=== PATIENT | male | born 1960 | race African-American/Black ===

== ENCOUNTER 2025-01-29 05:15 | Inpatient (IN) | payer MEDICARE, MEDICAID ==
[~2025-01-29] VITALS: Ht 175.3 cm; Wt 106.2 kg
[2025-01-29] VITALS (7 sets, daily range): BP systolic 104–138; BP diastolic 58–88; PULSE 60–81; RESP 16–20; TEMP 36.418–36.8; O2SAT 92–98
[~2025-01-29 05:15] MED LIST: AMLO10TA80 PO; ATOR20TA65 PO; GABA-1180 PO; HYDR50CA5 PO; OMEP20CA14 PO; PROT40 MT; TRAZ-251 PO
[2025-01-29] MEDS: IPRATROPIUM BROMIDE (0.02%) 0.5MG/2.5ML NEB HHN ONE (06:22)
[2025-01-29] MEDS: ALBUTEROL (0.083%) 2.5MG/3ML NEB HHN ONE (06:22)
[2025-01-29] MEDS: MORPHINE SULFATE 4 MG/ML INJ (FOR IV/IM USE) IV ONE (06:24)
[2025-01-29] MEDS: METHYLPREDNISOLONE SOD SUCC 40MG/ML (ACT-O-VIAL) IV ONE (06:25)
[2025-01-29 06:26] LABS: BASOPHILS % 0.2 % (0.0-2.0); EOSINOPHILS % 0.0 % (0.0-5.0); HEMATOCRIT. 44.2 % (42.0-52.0); HEMOGLOBIN. 14.8 g/dL (14.0-18.0); LYMPHOCYTES % 8.9 % (20.0-50.0); MEAN PLATELET VOLUME 9.1 fl (7.4-10.4); MONOCYTES % 5.1 % (2.0-8.0); NEUTROPHILS % 85.8 % (40.0-76.0); PLATELET 193 x1000/uL (130-400); RED BLOOD CELL COUNT 5.02 mill/uL (4.7-6.1); RED CELL DISTRIBUTION WIDTH 13.5 % (11.6-14.6)
[2025-01-29 06:51] LABS: CREATININE 1.4 mg/dL (0.6-1.3); UREA NITROGEN BLOOD 22 mg/dL (9-23)
[2025-01-29 06:52] LABS: PROTEIN TOTAL 7.0 g/dL (6.0-8.3)
[2025-01-29 06:53] LABS: ASPARTATE AMINOTRANSFERASE 19 IU/L (<34); BILIRUBIN TOTAL 0.7 mg/dL (0.1-1.0)
[2025-01-29 06:55] LABS: TROPONIN I HIGH SENSITIVITY 84 ng/L (3.0-53)
[2025-01-29 07:44] LABS: INFLUENZA TYPE A Presumptive Negative (Pres. Neg.); INFLUENZA TYPE B Presumptive Negative (Pres. Neg.); RESPIRATORY SYNCYTIAL VIRUS Not Detected (Not Detectd)
[2025-01-29] MEDS ORDERED: ASPIRIN 81MG TABLET PO ONE (08:30)
[2025-01-29 09:53] LABS: TROPONIN I HIGH SENSITIVITY 79 ng/L (3.0-53)
[2025-01-29] MEDS ORDERED: CLOP75TA33 PO (11:44)
[2025-01-29] MEDS ORDERED: HYDR25TA PO (11:44)
[2025-01-29] MEDS ORDERED: GABA-1180 PO (11:44)
[2025-01-29] MEDS ORDERED: ACET-2708 MT (11:44)
[2025-01-29] MEDS ORDERED: BACL-141 PO (11:44)
[2025-01-29] MEDS ORDERED: ASPI-1497 PO (11:44)
[2025-01-29] MEDS ORDERED: ENOXAPARIN 40MG/0.4ML SYR SUBCUT SCH (11:45)
[2025-01-29] MEDS ORDERED: ONDANSETRON HCL 4MG/2ML INJ IV PRN (11:45)
[2025-01-29] MEDS ORDERED: IPRATROPIUM/ALBUTEROL 0.5-3(2.5)MG/3ML NEB HHN PRN (11:45)
[2025-01-29] MEDS ORDERED: DIPHENHYDRAMINE 50MG/ML VIAL IV PRN (11:45)
[2025-01-29] MEDS ORDERED: ZOLPIDEM TARTRATE 5MG TABLET PO PRN (11:45)
[2025-01-29] MEDS ORDERED: ACETAMINOPHEN 325MG TABLET PO PRN (11:45)
[2025-01-29] MEDS ORDERED: MAGNESIUM/ALUMINUM HYDROXIDE/SIMETHICONE 30ML UDC PO PRN (11:45)
[2025-01-29] MEDS ORDERED: CLONIDINE 0.1MG TABLET PO PRN (11:45)
[2025-01-29] MEDS ORDERED: HYDRALAZINE 20MG/ML VIAL IV PRN (11:45)
[2025-01-29] MEDS ORDERED: KETOROLAC 30MG/ML VIAL IV PRN (12:00)
[2025-01-29] MEDS ORDERED: KETOROLAC 15MG/ML VIAL IV PRN (12:15)
[2025-01-29] MEDS: ENOXAPARIN 40MG/0.4ML SYR SUBCUT SCH (13:29)
[2025-01-29] MEDS: DOCUSATE SODIUM 250MG CAPSULE PO SCH (13:29)
[2025-01-29] MEDS: PANTOPRAZOLE 40MG DR TABLET PO SCH (13:30)
[2025-01-29] MEDS: GABAPENTIN 300MG CAPSULE PO SCH (13:30)
[2025-01-29] MEDS: SODIUM CHLORIDE 0.9% 3ML FLUSH IVF SCH (14:35)
[2025-01-29] MEDS: IPRATROPIUM/ALBUTEROL 0.5-3(2.5)MG/3ML NEB HHN SCH (15:04)
[2025-01-29] MEDS: GUAIFENESIN 200MG/10ML SUGAR FREE UDC PO SCH (15:27)
[2025-01-29] MEDS: AMLODIPINE 2.5MG TABLET PO SCH (21:00)
[2025-01-29] MEDS: TRAZODONE HCL 50MG TABLET PO SCH (21:58)
[2025-01-30] VITALS (10 sets, daily range): BP systolic 91–143; BP diastolic 48–72; PULSE 54–78; RESP 18–20; TEMP 36.3–36.7; O2SAT 92–100
[2025-01-30 05:27] LABS: *AMPHETAMINES SCREEN URINE NEGATIVE (NEGATIVE); *BARBITURATES SCREEN URINE NEGATIVE (NEGATIVE); *BENZODIAZEPINES SCREEN URINE NEGATIVE (NEGATIVE); *COCAINE SCREEN URINE NEGATIVE (NEGATIVE); CANNABINOID URINE SCREEN NEGATIVE (NEGATIVE); ECSTASY MDMA SCREEN URINE NEGATIVE (NEGATIVE); METHADONE URINE SCREEN NEGATIVE (NEGATIVE); OPIATES URINE SCREEN PRESUMPTIVE POSITIVE (NEGATIVE); PHENCYCLIDINE URINE SCREEN NEGATIVE (NEGATIVE)
[2025-01-30] MEDS: AMLODIPINE 2.5MG TABLET PO SCH (18:15)
[2025-01-30] MEDS: DOCUSATE SODIUM 100MG CAPSULE PO SCH (21:36)
[2025-01-30] MEDS: BISACODYL 5MG TABLET PO PRN (21:38)
[2025-01-31] VITALS (10 sets, daily range): BP systolic 109–148; BP diastolic 54–75; PULSE 61–81; RESP 16–19; TEMP 36.6–36.8; O2SAT 97–99
[2025-01-31] MEDS: ACETAMINOPHEN 325MG TABLET PO PRN (21:38)
[2025-02-01] VITALS (10 sets, daily range): BP systolic 116–138; BP diastolic 58–74; PULSE 60–85; RESP 16–19; TEMP 36.4–36.7; O2SAT 96–99
[2025-02-02] VITALS (10 sets, daily range): BP systolic 126–151; BP diastolic 70–75; PULSE 58–85; RESP 15–20; TEMP 36.4–36.8; O2SAT 97–99
[2025-02-03] VITALS (8 sets, daily range): BP systolic 118–141; BP diastolic 58–74; PULSE 60–94; RESP 16–18; TEMP 36.1–37.2; O2SAT 94–100
[2025-02-03] MEDS ORDERED: ATOR20TA65 PO (16:49)
[2025-02-03] MEDS ORDERED: AMLO5TAB88 PO (16:49)
[2025-02-03] MEDS ORDERED: TRAZ-251 PO (16:49)
[2025-02-03] MEDS ORDERED: ASPI-1497 PO (16:49)
[2025-02-03] MEDS ORDERED: BACL-141 PO (16:49)
[2025-02-03] MEDS ORDERED: CLOP75TA33 PO (16:49)
[2025-02-03] MEDS ORDERED: HYDR-3992 PO (16:49)
[2025-02-03] MEDS ORDERED: GABA-1180 PO (16:49)
[2025-02-03] MEDS ORDERED: ENOXAPARIN 30MG/0.3ML SYR SUBCUT SCH (21:00)
[2025-02-04] MEDS ORDERED: AMLODIPINE 5MG TABLET PO SCH (09:00)
== END 2025-02-03 18:25 | disposition home or self-care (01) | DRG 392 ==
LOC: ER 05:27 → 7WST 08:20 → EDBEDREQTM 08:22 → EDBEDREQSVC 08:22 → EDBEDREQ 08:22 → ENRESERV 09:45
PROVIDERS: ADMIT Internal Medicine; ATTEND Internal Medicine
DX: K21.9 Gastro-esophageal reflux disease without esophagitis (principal); I11.0 Hypertensive heart disease with heart failure; I50.9 Heart failure, unspecified; E11.9 Type 2 diabetes mellitus without complications; E66.9 Obesity, unspecified; R07.89 Other chest pain; I25.10 Atherosclerotic heart disease of native coronary artery without angina pectoris; R06.02 Shortness of breath; F41.1 Generalized anxiety disorder; K59.00 Constipation, unspecified; Z88.0 Allergy status to penicillin; Z79.82 Long term (current) use of aspirin; Z68.34 Body mass index [BMI] 34.0-34.9, adult
CPT/HCPCS: 36415; 71045; 80053; 80305; 83880; 84484; 85025; 87420; 87426; 87804; 93005; 94003; 94070; 94640; 94664; 96374; 96375; 97162; 97166; 99285; A4615; J1650; J2270; J2919